=== PATIENT | female | born 1990 | race Two or more races ===

== ENCOUNTER 2018-10-16 12:50 | Emergency (ER) | payer MEDICAID ==
[~2018-10-16] VITALS: Ht 157.5 cm; Wt 68.0 kg
[~2018-10-16 12:50] MED LIST: COL100 PO; TYLENOL WITH CO1 TA2 PO
[2018-10-16 12:57] VITALS: Ht 157.5 cm; Wt 68.0 kg
[2018-10-16 13:57] VITALS: BP 131/93
== END 2018-10-16 13:57 | disposition home or self-care (01) ==
LOC: ED 12:50
DX: S92.201A Fracture of unspecified tarsal bone(s) of right foot, initial encounter for closed fracture (principal); X50.1XXA Overexertion from prolonged static or awkward postures, initial encounter; Y93.51 Activity, roller skating (inline) and skateboarding; Y92.89 Other specified places as the place of occurrence of the external cause; Y99.8 Other external cause status